=== PATIENT | male | born 1980 | race Caucasian/White ===

== ENCOUNTER 2024-01-26 02:37 | Emergency (ER) | payer OTHER ==
[2024-01-26] MEDS ORDERED: cefTRIAXone (ROCEPHIN) 2 GM VIAL ONE (03:45)
[2024-01-26 04:45] LABS: Lipase 92 U/L (8-78); Magnesium 1.8 mg/dL (1.6-2.6)
[2024-01-26 04:46] LABS: Troponin I Less than 0.010 ng/mL (< 0.028)
[2024-01-26 05:05] LABS: Carbon Dioxide 18 mmol/L (22-29); Chloride 103 mmol/L (98-107); Potassium 4.7 mmol/L (3.5-5.1); Sodium 132 mmol/L (136-145)
[2024-01-26 05:06] LABS: AST (SGOT) 35 U/L (5-34); Albumin 2.5 g/dL (3.5-5.0); Alkaline Phosphatase 123 U/L (40-110); Anion Gap 16 mmol/L (10-20); BUN (Urea Nitrogen) 30 mg/dL (8.9-20.6); Bilirubin, Total 1.1 mg/dL (0.2-1.2); Calc. Creatinine Clearance 0 mL/min (70-130); Calcium 8.9 mg/dL (7.6-10.4); Estimated GFR 39; Globulin 5.8 g/dL (2.4-3.5); Glucose 117 mg/dL (70-105); Protein, Total 8.3 g/dL (6.0-8.3)
[2024-01-26 05:07] LABS: ALT (SGPT) 38 U/L (8-55)
[2024-01-26 05:10] LABS: Hematocrit 24.3 % (38.8-50.0); Mean Corpuscular HGB CONC 32.9 g/dL (32.0-36.0); Red Blood Cell (RBC) Count 2.86 10x6/uL (4.32-5.72)
[2024-01-26 05:11] LABS: %Basophils 0.2 % (0.0-2.0); %Eosinophils 0.1 % (0.0-6.0); %Lymphocytes 4.7 % (18.0-47.0); %Monocytes 4.9 % (0.0-10.0); %Neutrophils 89.6 % (40.0-75.0); Mean Platelet Volume 9.3 fl (7.4-10.4); Platelet Count 296 10x3/uL (130-400); RBC Distribution Width 17.1 % (11.5-14.5)
[2024-01-26 05:12] LABS: #Basophils 0.03 10x3/uL (0.0-0.2); #Eosinphils 0.02 10x3/uL (0.0-0.5); #Monocytes 0.74 10x3/uL (0.0-1.1); Prothrombin Time 12.4 sec (9.5-12.1)
[2024-01-26 05:13] LABS: INR-International Normal Ratio 1.2; PTT 31.1 sec (22.0-33.0)
[2024-01-26 05:33] LABS: Clarity Slightly Cloudy (Clear); Leukocyte 500 (Negative); Nitrite Positive (Negative); Protein, Urine (Dipstick) 100 mg/dl (Neg-Trace); Specific Gravity, Urine 1.005 (1.005-1.030)
[2024-01-26 05:34] LABS: Bilirubin Negative (Negative); Blood, Urine 250 (Negative); Glucose, Urine (Dipstick) Normal (Negative); Ketone, Urine Negative (Negative); Urobilinogen Normal mg/dL (Less than 2)
[2024-01-26 05:46] LABS: Bacteria/HPF 1+ HPF (None Seen); RBC/HPF 0-3 HPF (0-3); Squamous Epithelial 0-3 HPF (0-3); WBC/HPF 21-50 HPF (0-3)
[2024-01-26 05:48] LABS: Urine Culture Reflex Yes Yes
[2024-01-26 07:06] LABS: Actual Bicarbonate (HCO3v) 21.1 mEq/L (22-28); Analyzer IN Cardio CS ER; Base Excess -3.8 mEq/L (-2 - +2); Calcium, Ionized (venous) 1.08 mmol/L (1.16-1.32); Chloride (VBG) 104 mmol/L (98-106); Hematocrit-VBG 25 % (42.0-52.0); Hemoglobin (Hb) 8.4 g/dL (13.2-17.3); Potassium (VBG) 4.85 mmol/L (3.70-5.30); Puncture Site Other Site; RapidComm Collect By lab; Sodium 134 mmol/L (133-146); pH (venous) 7.373 (7.32-7.43)
== END 2024-01-26 11:08 | disposition short-term general hospital (02) ==
LOC: CSHERS 02:37 → EEVIPCON 02:37 → CSHERS 11:08
DX: A41.9 Sepsis, unspecified organism (principal); B39.0 Acute pulmonary histoplasmosis capsulati; N13.9 Obstructive and reflux uropathy, unspecified; E78.5 Hyperlipidemia, unspecified; K21.9 Gastro-esophageal reflux disease without esophagitis; Z85.038 Personal history of other malignant neoplasm of large intestine; Z93.6 Other artificial openings of urinary tract status; Z79.899 Other long term (current) drug therapy
CPT/HCPCS: 36415; 71045; 74176; 81001; 82805; 83605; 83690; 83735; 83880; 84484; 85025; 85610; 85730; 87040; 87077; 87086; 87186; 96361; 96374; J0696